=== PATIENT | female | born 1970 | race Caucasian/White ===

== ENCOUNTER → 2017-10-24 | Outpatient (CLI) | payer OTHER ==
[~2017-10-24] MED LIST: COMBIVENT1 ARO IH; DYAZIDE 25 MG-31 CAP PO; MOTRIN800 MG PO; NAPROSYN500 MG PO; VICODIN 5/500 505 MG PO; VICODIN ES 7501 TAB PO
[2017-10-24 08:43] LABS: ALBUMIN 3.8 gm/dl (3.1-4.5); ALKALINE PHOSPHATASE 77 U/L (45-117); BUN 10 mg/dl (7-24); CHLORIDE 103 mmol/L (98-107); POTASSIUM 3.7 mmol/L (3.5-5.1); SGOT/AST 33 IU/L (3-35); SGPT/ALT 36 U/L (12-78); SODIUM 141 mmol/L (136-145); TOTAL PROTEIN 8.5 gm/dL (6.4-8.2)
== END | disposition home or self-care (01) ==
LOC: LAB 07:49
PROVIDERS: Family Medicine
DX: E03.9 Hypothyroidism, unspecified (principal); E11.9 Type 2 diabetes mellitus without complications

== ENCOUNTER 2019-12-16 19:05 | Emergency (ER) | payer OTHER ==
[~2019-12-16] VITALS: Ht 177.8 cm; Wt 113.4 kg
== END 2019-12-16 21:35 | disposition left against medical advice (07) ==
LOC: ED 19:05
DX: S22.41XA Multiple fractures of ribs, right side, initial encounter for closed fracture (principal); W18.39XA Other fall on same level, initial encounter; Y93.89 Activity, other specified; Y92.89 Other specified places as the place of occurrence of the external cause; Y99.8 Other external cause status

== ENCOUNTER 2020-01-30 06:42 | Emergency (ER) | payer OTHER ==
[~2020-01-30] VITALS: Ht 177.8 cm; Wt 113.4 kg
[2020-01-30 07:17] LABS: HEMATOCRIT 33.2 % (37.0-47.0); MEAN CELL VOLUME 108.5 fl (81.0-99.0); MEAN CORPUSCULAR HGB 37.3 pg (27.0-31.0); MEAN CORPUSCULAR HGB CONC 34.3 g/dl (33.0-37.0); MEAN PLATELET VOLUME 10.7 fl (9.6-12.3); PLATELET COUNT AUTOMATED 107 10*3/uL (130-400); RED BLOOD COUNT 3.06 10*6/uL (4.10-5.10); WHITE BLOOD COUNT 6.6 10*3/uL (4.8-10.8)
[2020-01-30 07:29] LABS: ACT PARTIAL THROMBO TIME 34.7 SECONDS (20.0-32.1); INTERNATIONAL NORM RATIO 1.9 (2.0-3.5)
[2020-01-30 07:36] LABS: ALBUMIN 2.1 gm/dl (3.1-4.5); ALKALINE PHOSPHATASE 96 U/L (45-117); BUN 8 mg/dl (7-24); CHLORIDE 94 mmol/L (98-107); CREATININE 0.73 mg/dL (0.55-1.02); LIPASE 143 U/L (73-393); POTASSIUM 3.2 mmol/L (3.5-5.1); SGOT/AST 149 IU/L (3-35); SGPT/ALT 39 U/L (12-78); SODIUM 134 mmol/L (136-145); TOTAL PROTEIN 7.6 gm/dL (6.4-8.2)
[2020-01-30 07:37] LABS: BETA-HCG, QUANT < 1.0 mIU/mL (1-3); TROPONIN I < 0.015 ng/ml (<0.045)
[2020-01-30 07:47] LABS: TOTAL CELLS COUNTED 100 #CELLS
[2020-01-30 07:48] LABS: PLATELET SUFFICIENCY LOW (NORMAL); ROULEAUX SLIGHT; TARGET CELLS FEW
[2020-01-30 07:49] LABS: COLOR ORANGE (YELLOW)
[2020-01-30 07:50] LABS: BILIRUBIN 3+ (NEGATIVE); BLOOD NEGATIVE (NEGATIVE); CLARITY CLOUDY (CLEAR); GLUCOSE NEGATIVE (NEGATIVE); KETONE 1+ (NEGATIVE); LEUKO ESTERASE 1+ (NEGATIVE); NITRITE POSITIVE (NEGATIVE); SPECIFIC GRAVITY 1.025 (1.005-1.030)
[2020-01-30 08:01] LABS: BACTERIA 2+; EPITHELIAL CELLS 31-40; MUCOUS 1+
[2020-01-30] MEDS ORDERED: VITAMIN E400 UNI3 PO (17:04)
[2020-01-30] MEDS ORDERED: FISH OIL OMEGA1 EAC1 PO (17:04)
[2020-01-30] MEDS ORDERED: OMEPRAZOLE20 M2 PO (17:05)
[2020-01-30] MEDS ORDERED: Synthroid,Levo75 MCG PO (17:05)
[2020-01-30] MEDS ORDERED: TRIAMTERENE & H1 CAP PO (17:06)
[2020-01-30] MEDS ORDERED: LASIX20 MG PO (17:06)
[2020-01-30] MEDS ORDERED: SIMVASTATIN10 MG PO (17:07)
[2020-01-30] MEDS ORDERED: ALDACTONE50 M1 PO (17:07)
[2020-01-30] MEDS ORDERED: METFORMIN HYD1000 MG PO (17:07)
[2020-01-30] MEDS ORDERED: Glimepiride1 MG PO (17:08)
[2020-01-31 07:10] LABS: HEP B CORE AB, IGM Negative (Negative); HEPATITIS B SURFACE AG Negative (Negative); HEPATITIS C VIRUS ANTIBODY 0.2 s/co (0.0-0.9)
== END 2020-01-30 16:45 | disposition admitted as inpatient to this hospital (09) ==
LOC: ED 06:42
PROVIDERS: Family Medicine
DX: N39.0 Urinary tract infection, site not specified (principal)

== ENCOUNTER 2020-01-30 11:45 | Inpatient (IN) | payer OTHER ==
[~2020-01-30] VITALS: Ht 177.8 cm; Wt 130.6 kg
[2020-01-30 16:47] VITALS: BP 150/60
[2020-01-30] MEDS ORDERED: VITAMIN E400 UNI3 PO (17:04)
[2020-01-30] MEDS ORDERED: FISH OIL OMEGA1 EAC1 PO (17:04)
[2020-01-30] MEDS ORDERED: OMEPRAZOLE20 M2 PO (17:05)
[2020-01-30] MEDS ORDERED: Synthroid,Levo75 MCG PO (17:05)
[2020-01-30] MEDS ORDERED: LASIX20 MG PO (17:06)
[2020-01-30] MEDS ORDERED: TRIAMTERENE & H1 CAP PO (17:06)
[2020-01-30] MEDS ORDERED: SIMVASTATIN10 MG PO (17:07)
[2020-01-30] MEDS ORDERED: ALDACTONE50 M1 PO (17:07)
[2020-01-30] MEDS ORDERED: METFORMIN HYD1000 MG PO (17:07)
[2020-01-30] MEDS ORDERED: Glimepiride1 MG PO (17:08)
[2020-01-30 20:00] VITALS: BP 122/54
[2020-01-31 06:40] LABS: MEAN CELL VOLUME 108.3 fl (81.0-99.0); MEAN CORPUSCULAR HGB 37.5 pg (27.0-31.0); MEAN CORPUSCULAR HGB CONC 34.7 g/dl (33.0-37.0); MEAN PLATELET VOLUME 10.6 fl (9.6-12.3); PLATELET COUNT AUTOMATED 100 10*3/uL (130-400); RED BLOOD COUNT 2.77 10*6/uL (4.10-5.10); RED CELL DISTRI WIDTH 17.1 % (0-14.5); WHITE BLOOD COUNT 5.6 10*3/uL (4.8-10.8)
[2020-01-31 06:57] LABS: ALKALINE PHOSPHATASE 104 U/L (45-117); BILIRUBIN, DIRECT 12.2 mg/dL (0.0-0.2); BUN 11 mg/dl (7-24); CHLORIDE 98 mmol/L (98-107); CREATININE 0.62 mg/dL (0.55-1.02); POTASSIUM 3.5 mmol/L (3.5-5.1); SGOT/AST 136 IU/L (3-35); SGPT/ALT 40 U/L (12-78); SODIUM 135 mmol/L (136-145); TOTAL PROTEIN 6.7 gm/dL (6.4-8.2)
[2020-01-31 07:27] LABS: BASOPHILS 1 % (0-1); PLATELET SUFFICIENCY LOW (NORMAL); ROULEAUX SLIGHT; SCHISTOCYTES FEW; TOTAL CELLS COUNTED 100 #CELLS
[2020-01-31 08:00] VITALS: BP 150/67
== END 2020-01-31 13:09 | disposition short-term general hospital (02) | DRG 432 ==
LOC: EDHOLD 11:45 → 4E 11:45
PROVIDERS: Internal Medicine; ADMIT Internal Medicine; ATTEND Internal Medicine
DX: K70.31 Alcoholic cirrhosis of liver with ascites (principal); E43 Unspecified severe protein-calorie malnutrition; N39.0 Urinary tract infection, site not specified; E87.1 Hypo-osmolality and hyponatremia; I10 Essential (primary) hypertension; E78.5 Hyperlipidemia, unspecified; E03.9 Hypothyroidism, unspecified; E80.6 Other disorders of bilirubin metabolism; E87.6 Hypokalemia; D53.9 Nutritional anemia, unspecified; E87.8 Other disorders of electrolyte and fluid balance, not elsewhere classified; F10.10 Alcohol abuse, uncomplicated; K76.0 Fatty (change of) liver, not elsewhere classified; E28.2 Polycystic ovarian syndrome; E11.9 Type 2 diabetes mellitus without complications

== ENCOUNTER → 2020-02-19 | Outpatient (CLI) | payer OTHER ==
[~2020-02-19] MED LIST changes: +ALDACTONE50 M1 PO; +FISH OIL OMEGA1 EAC1 PO; +Glimepiride1 MG PO; +LASIX20 MG PO; +METFORMIN HYD1000 MG PO; +OMEPRAZOLE20 M2 PO; +SIMVASTATIN10 MG PO; +Synthroid,Levo75 MCG PO; +TRIAMTERENE & H1 CAP PO; +VITAMIN E400 UNI3 PO
[2020-02-19 15:33] LABS: HEMATOCRIT 31.3 % (37.0-47.0); MEAN CELL VOLUME 109.4 fl (81.0-99.0); MEAN CORPUSCULAR HGB 39.2 pg (27.0-31.0); MEAN CORPUSCULAR HGB CONC 35.8 g/dl (33.0-37.0); MEAN PLATELET VOLUME 11.7 fl (9.6-12.3); PLATELET COUNT AUTOMATED 165 10*3/uL (130-400); RED BLOOD COUNT 2.86 10*6/uL (4.10-5.10); RED CELL DISTRI WIDTH 16.2 % (0-14.5); WHITE BLOOD COUNT 19.9 10*3/uL (4.8-10.8)
[2020-02-19 15:44] LABS: INTERNATIONAL NORM RATIO 1.8 (2.0-3.5)
[2020-02-19 15:51] LABS: PLATELET SUFFICIENCY NORMAL (NORMAL); TOTAL CELLS COUNTED 100 #CELLS
== END | disposition home or self-care (01) ==
LOC: LAB 15:08
PROVIDERS: ATTEND Internal Medicine Gastroenterology
DX: R78.1 Finding of opiate drug in blood (principal)